=== PATIENT | male | born 1995 | race Caucasian/White ===

== ENCOUNTER → 2016-11-27 | Outpatient (CLI) | payer OTHER | LOC: HYPER 07:04 | DX: L89.612 Pressure ulcer of right heel, stage 2 (principal); S61.402A Unspecified open wound of left hand, initial encounter; G82.20 Paraplegia, unspecified; K21.9 Gastro-esophageal reflux disease without esophagitis; R25.2 Cramp and spasm; X58.XXXA Exposure to other specified factors, initial encounter; Y93.89 Activity, other specified; Y92.89 Other specified places as the place of occurrence of the external cause; Y99.8 Other external cause status ==

== ENCOUNTER → 2016-12-03 | Outpatient (CLI) | payer OTHER | LOC: HYPER 07:10 | DX: L89.612 Pressure ulcer of right heel, stage 2 (principal); K21.9 Gastro-esophageal reflux disease without esophagitis; G82.54 Quadriplegia, C5-C7 incomplete ==

== ENCOUNTER → 2017-03-28 | Outpatient (CLI) | payer OTHER | LOC: HYPER 12-31 07:30 | DX: L89.512 Pressure ulcer of right ankle, stage 2 (principal); L89.022 Pressure ulcer of left elbow, stage 2; K21.9 Gastro-esophageal reflux disease without esophagitis; G82.50 Quadriplegia, unspecified ==